=== PATIENT | male | born 1990 | race Caucasian/White ===

== ENCOUNTER 2017-02-27 08:16 | Emergency (ER) | payer OTHER ==
[~2017-02-27] VITALS: Ht 172.7 cm; Wt 105.0 kg
[2017-02-27 09:52] LABS: INFLUENZA A NONE DETECTED (NONE DETECT); INFLUENZA B NONE DETECTED (NONE DETECT)
[2017-02-27] MEDS ORDERED: AUGMENTIN875TAB PO (10:07)
[2017-02-27 10:09] VITALS: BP 149/90
== END 2017-02-27 10:09 | disposition home or self-care (01) | DRG 153 ==
LOC: ED 08:16
PROVIDERS: Family Medicine
DX: J02.0 Streptococcal pharyngitis (principal)

== ENCOUNTER 2018-10-09 07:49 | Emergency (ER) | payer BC ==
[~2018-10-09] VITALS: Ht 177.8 cm; Wt 111.4 kg
[~2018-10-09 07:49] MED LIST: AUGMENTIN875TAB PO
[2018-10-09 08:24] LABS: HEMATOCRIT 44.2 % (39.0-50.0); HEMOGLOBIN 15.1 g/dl (14.0-18.0); IMMATURE GRANULOCYTES 0.5 % (0.0-5.0); MEAN CELL VOLUME 84.4 fL CALC (80.0-100.0); MEAN CORPUSCULAR HGB 28.8 pG CALC (26.0-32.0); MEAN CORPUSCULAR HGB CONC 34.2 g/L CALC (32.0-36.0); NEUT# 4.75 thou/uL (1.82-7.42); RED BLOOD COUNT 5.24 mill/uL (4.70-6.10); RED CELL DISTRI WIDTH 13.2 % (11.5-15.5)
[2018-10-09 08:39] LABS: ALBUMIN 4.7 g/dL (3.2-5.0); ALKALINE PHOSPHATASE 87 u/l (38-126); ANION GAP 11 (6-22 (CALC)); BILIRUBIN, TOTAL 1.3 mg/dL (0.0-1.4); BUN 11 mg/dL (9-20); BUN/CREATININE RATIO 12 (12-20 (CALC)); CARBON DIOXIDE 27 mmol/l (22-30); CHLORIDE 107 mmol/l (95-108); GFR > 60 ML/MIN (>=60 (CALC)); GFR FOR AFR.AMER. > 60 ML/MIN (>=60 (CALC)); LIPASE 80 u/l (23-300); POTASSIUM 3.9 mmol/l (3.5-5.1); SGOT/AST 35 u/l (17-59); SODIUM 142 mmol/l (137-146); TOTAL PROTEIN 7.8 g/dL (6.3-8.2)
[2018-10-09] MEDS ORDERED: CYCLOBENZAPR5 MG PO (10:22)
[2018-10-09] MEDS ORDERED: MOTRIN400 MG PO (10:22)
[2018-10-09 10:32] LABS: URINE BLOOD DIPSTICK TRACE-INTACT (NEGATIVE); URINE COLOR YELLOW; URINE GLUCOSE - DIPSTICK NEGATIVE (NEGATIVE); URINE KETONE NEGATIVE (NEGATIVE); URINE LEUK ESTERASE NEGATIVE (NEGATIVE); URINE NITRITE - DIPSTICK NEGATIVE (Negative); URINE PROTEIN - DIPSTICK NEGATIVE (NEG-TRACE); URINE UROBILINOGEN - DIPSTICK 0.2 E.U./dL (0.2)
[2018-10-09 10:33] LABS: URINE BILIRUBIN - DIPSTICK SMALL (NEGATIVE)
[2018-10-09 11:40] VITALS: BP 155/87
== END 2018-10-09 11:40 | disposition home or self-care (01) | DRG 552 ==
LOC: ED 07:49
PROVIDERS: Family Medicine
DX: M62.830 Muscle spasm of back (principal); M54.5 Low back pain; R10.12 Left upper quadrant pain; R11.2 Nausea with vomiting, unspecified; R61 Generalized hyperhidrosis